=== PATIENT | female | born 1990 | race Two or more races ===

== ENCOUNTER 2021-04-02 15:24 | Inpatient (IN) | payer MEDICAID ==
[~2021-04-02] VITALS: Ht 160 cm; Wt 47.9 kg
[2021-04-02] MEDS ORDERED: MULT-264 PO (19:01)
[2021-04-02] MEDS ORDERED: ESCI20TA87 PO (19:01)
[2021-04-02] MEDS ORDERED: AMIT25TA10 PO (19:01)
[2021-04-02] MEDS ORDERED: HALOPERIDOL 5 MG TABLET PO PRN (20:00)
[2021-04-02 20:24] VITALS: BP 118/75
[2021-04-02] MEDS: LORazepam 2 MG TABLET PO PRN (21:27)
[2021-04-03 06:20] VITALS: BP 105/61
[2021-04-03] MEDS ORDERED: ALBUTEROL SULFATE HFA 90 MCG/PUFF 8 GM INHALER IH PRN (06:45)
[2021-04-03] MEDS ORDERED: CloNIDine HCL 0.1 MG TABLET PO PRN (06:45)
[2021-04-03] MEDS ORDERED: MAGNESIUM HYDROXIDE SUSPENSION 30 ML UDCUP PO PRN (06:45)
[2021-04-03] MEDS ORDERED: GuaiFENesin/D-METHORPHAN [SUGAR-FREE] 200-20MG/10 ML SYRUP UDCUP PO PRN (06:45)
[2021-04-03] MEDS ORDERED: ACETAMINOPHEN 325 MG TABLET PO PRN (06:45)
[2021-04-03] MEDS ORDERED: DOCUSATE SODIUM 100 MG CAPSULE PO PRN (06:45)
[2021-04-03] MEDS ORDERED: ONDANSETRON HCL 4 MG TABLET PO PRN (06:45)
[2021-04-03] MEDS ORDERED: LOPERAMIDE HCL 2 MG CAPSULE PO PRN (06:45)
[2021-04-03] MEDS ORDERED: MAG HYDROX/AL HYDROX/SIMETH ES 30 ML SUSPENSION UDCUP PO PRN (06:45)
[2021-04-03] MEDS ORDERED: IBUPROFEN 400 MG TABLET PO PRN (06:45)
[2021-04-03] MEDS ORDERED: PETROLATUM,WHITE 28 GM JELLY TP PRN (06:45)
[2021-04-03] MEDS ORDERED: NICOTINE 14 MG/24 HOUR PATCH TD PRN (06:45)
[2021-04-03 08:10] LABS: BASOPHILS % (AUTO) 1.1 % (0.0-2.0); HEMATOCRIT 38.5 % (36-46); HEMOGLOBIN 12.8 g/dL (12.0-16.0); HEMOGLOBIN A1C 5.3 % (3.8-5.6); LYMPHOCYTES # (AUTO) 2.5 K/uL (1.0-4.8); LYMPHOCYTES % (AUTO) 40.2 % (22.0-44.0); MEAN CORPUSCULAR HEMOGLOBIN 29.7 pg (26.0-34.0); MEAN CORPUSCULAR HGB CONC 33.3 G/dL (31.0-37.0); MEAN CORPUSCULAR VOLUME 89 fL (80-100); MONOCYTES # (AUTO) 0.6 K/uL (0.1-1.0); MONOCYTES % (AUTO) 9.3 % (2.0-9.0); NEUTROPHILS # (AUTO) 2.8 K/uL (1.8-7.7); NEUTROPHILS % (AUTO) 45.4 % (40.0-70.0); PLATELET COUNT (AUTO) 307 K/uL (150-450); RED BLOOD CELL COUNT(AUTO) 4.32 MIL/uL (4.00-5.20); RED CELL DISTRIBUTION WIDTH 12.6 % (11.5-14.5)
[2021-04-03 08:43] LABS: ALANINE AMINOTRANSFERASE 25 U/L (12-78); ALBUMIN 3.6 g/dL (3.4-5.0); ALKALINE PHOSPHATASE 54 U/L (46-116); ANION GAP 12 mmol/L (8-16); ASPARTATE AMINOTRANSFERASE 23 U/L (15-37); BILIRUBIN,TOTAL 0.5 mg/dL (0.1-1.0); CALCIUM, TOTAL 8.9 mg/dL (8.8-10.5); CARBON DIOXIDE 23 mmol/L (22-29); CHLORIDE 104 mmol/L (98-107); CHOL/HDL RATIO 2.8 (3.9-5.7); CHOLESTEROL 215 mg/dL (131-200); CREATININE 0.74 mg/dL (0.60-1.30); GLOMERULAR FILTR. RATE CALC > 60 mL/min (>60); GLUCOSE,RANDOM 75 mg/dL (70-110); HCG,QUANTITATIVE 1 mIU/mL (0-6); HDL CHOLESTEROL 77 mg/dL (40-60); LDL CHOL (CALC.) 130 mg/dL (0-130); POTASSIUM 4.3 mmol/L (3.5-5.1); SODIUM SERUM 139 mmol/L (136-145); THYROID STIMULATING HORMONE 0.85 uIU/mL (0.36-3.74); TOTAL PROTEIN, SERUM 6.7 g/dL (6.4-8.2); TRIGLYCERIDES 40 mg/dL (15-150); UREA NITROGEN, BLOOD 16 mg/dL (7-18)
[2021-04-03 16:12] VITALS: BP 103/68
[2021-04-03] MEDS: AMITRIPTYLINE HCL 25 MG TABLET PO SCH (20:22)
[2021-04-03] MEDS: ZOLPIDEM TARTRATE 10 MG TABLET PO PRN (20:22)
[2021-04-03] MEDS: ESCITALOPRAM OXALATE 20 MG TABLET PO SCH (20:22)
[2021-04-04 00:39] VITALS: BP 107/62
[2021-04-04 08:11] VITALS: BP 106/64
[2021-04-04] MEDS: MULTIVITAMINS WITH MINERALS, THERAPEUTIC TABLET PO SCH (08:23)
[2021-04-04 08:34] LABS: APPEARANCE,URINE CLEAR (CLEAR); BILIRUBIN,URINE NEGATIVE (NEGATIVE); GLUCOSE, URINE (UA) NEGATIVE (NEGATIVE); KETONES,URINE NEGATIVE (NEGATIVE); LEUKOCYTE ESTERASE ,URINE NEGATIVE (NEGATIVE); NITRATE,URINE NEGATIVE (NEGATIVE); OCCULT BLOOD,URINE NEGATIVE (NEGATIVE); PROTEIN,URINE NEGATIVE (NEGATIVE); UROBILINOGEN,URINE 0.2 mg/dL (<=1.0)
[2021-04-04 08:40] LABS: AMPHET/METH SCREEN,URINE NEGATIVE (NEGATIVE); BARBITURATE SCREEN, URINE NEGATIVE (NEGATIVE); BENZODIAZEPINES SCREEN,URINE NEGATIVE (NEGATIVE); CANNABINOID SCREEN,URINE NEGATIVE (NEGATIVE); COCAINE SCREEN,URINE NEGATIVE (NEGATIVE); METHADONE SCREEN, URINE NEGATIVE (NEGATIVE); OPIATE SCREEN,URINE NEGATIVE (NEGATIVE)
[2021-04-04 08:43] LABS: PHENCYCLIDINE SCREEN,URINE NEGATIVE (NEGATIVE)
[2021-04-04 16:09] VITALS: BP 102/65
[2021-04-04] MEDS: ESCITALOPRAM OXALATE 20 MG TABLET PO SCH (20:18)
[2021-04-04] MEDS: ZOLPIDEM TARTRATE 10 MG TABLET PO PRN (20:18)
[2021-04-04] MEDS: AMITRIPTYLINE HCL 25 MG TABLET PO SCH (20:18)
[2021-04-05 04:36] VITALS: BP 116/78
[2021-04-05] MEDS: LORazepam 2 MG TABLET PO PRN (05:15)
[2021-04-05 08:17] VITALS: BP 108/62
[2021-04-05] MEDS: MULTIVITAMINS WITH MINERALS, THERAPEUTIC TABLET PO SCH (08:55)
[2021-04-05 16:26] VITALS: BP 102/66
[2021-04-05] MEDS: AMITRIPTYLINE HCL 25 MG TABLET PO SCH (20:15)
[2021-04-05] MEDS: ZOLPIDEM TARTRATE 10 MG TABLET PO PRN (20:15)
[2021-04-05] MEDS: ESCITALOPRAM OXALATE 20 MG TABLET PO SCH (20:15)
[2021-04-06 03:01] VITALS: BP 110/64
[2021-04-06] MEDS: MULTIVITAMINS WITH MINERALS, THERAPEUTIC TABLET PO SCH (08:23)
[2021-04-06 08:45] VITALS: BP 114/69
[2021-04-06] MEDS ORDERED: DOCUSATE SODIUM 100 MG CAPSULE PO SCH (09:00)
[2021-04-06] MEDS ORDERED: AMIT25TA10 PO (09:36)
[2021-04-06] MEDS ORDERED: ESCI20TA87 PO (09:36)
[2021-04-06 16:04] VITALS: BP 109/69
== END 2021-04-06 17:15 | disposition home or self-care (01) | DRG 751 ==
LOC: B3A 20:04
PROVIDERS: ADMIT Psychiatry & Neurology Psychiatry; ATTEND Psychiatry & Neurology Psychiatry
DX: F33.2 Major depressive disorder, recurrent severe without psychotic features (principal); R45.851 Suicidal ideations; E78.5 Hyperlipidemia, unspecified; Z79.899 Other long term (current) drug therapy; Z91.51 Personal history of suicidal behavior
CPT/HCPCS: 80053; 80061; 80307; 81003; 83036; 84439; 84443; 84702; 85025; 87081

== ENCOUNTER 2022-05-08 20:00 | Emergency (ER) | payer MEDICAID, OTHER ==
[~2022-05-08] VITALS: Ht 162.6 cm; Wt 48.2 kg
[~2022-05-08 20:00] MED LIST: AMIT25TA10 PO; ESCI20TA87 PO
[2022-05-09 01:45] LABS: BASOPHILS % (AUTO) 1.1 % (0.0-2.0); EOSINOPHILS % (AUTO) 1.7 % (1.0-6.0); HEMATOCRIT 37.1 % (36-46); HEMOGLOBIN 12.6 g/dL (12.0-16.0); LYMPHOCYTES % (AUTO) 31.8 % (22.0-44.0); MEAN CORPUSCULAR HEMOGLOBIN 29.7 pg (26.0-34.0); MEAN CORPUSCULAR HGB CONC 34.1 G/dL (31.0-37.0); MEAN CORPUSCULAR VOLUME 87 fL (80-100); MONOCYTES # (AUTO) 0.5 K/uL (0.1-1.0); MONOCYTES % (AUTO) 7.6 % (2.0-9.0); NEUTROPHILS # (AUTO) 3.6 K/uL (1.8-7.7); NEUTROPHILS % (AUTO) 57.8 % (40.0-70.0); PLATELET COUNT (AUTO) 294 K/uL (150-450); RED BLOOD CELL COUNT(AUTO) 4.26 MIL/uL (4.00-5.20); RED CELL DISTRIBUTION WIDTH 12.5 % (11.5-14.5)
[2022-05-09 01:53] LABS: ANION GAP 5 mmol/L (8-16); CALCIUM, TOTAL 9.1 mg/dL (8.8-10.5); CARBON DIOXIDE 27 mmol/L (22-29); CHLORIDE 103 mmol/L (98-107); CREATININE 0.79 mg/dL (0.60-1.30); GLUCOSE,RANDOM 88 mg/dL (70-110); POTASSIUM 4.3 mmol/L (3.5-5.1); SODIUM SERUM 135 mmol/L (136-145); UREA NITROGEN, BLOOD 10 mg/dL (7-18)
[2022-05-09 01:57] LABS: GLOMERULAR FILTR. RATE CALC > 60 mL/min (>60)
[2022-05-09 01:59] LABS: ALANINE AMINOTRANSFERASE 37 U/L (12-78); ALBUMIN 3.8 g/dL (3.4-5.0); ALKALINE PHOSPHATASE 76 U/L (46-116); ASPARTATE AMINOTRANSFERASE 29 U/L (15-37); BILIRUBIN,TOTAL 0.3 mg/dL (0.1-1.0); TOTAL PROTEIN, SERUM 6.8 g/dL (6.4-8.2)
[2022-05-09 04:47] VITALS: BP 122/70
== END 2022-05-09 06:13 | disposition home or self-care (01) ==
LOC: EMS 20:04
DX: S06.0X0A Concussion without loss of consciousness, initial encounter (principal); S80.01XA Contusion of right knee, initial encounter; Y04.8XXA Assault by other bodily force, initial encounter; Y93.89 Activity, other specified; Y92.89 Other specified places as the place of occurrence of the external cause; Y99.8 Other external cause status
CPT/HCPCS: 99284; 80053; 85025; 36415; 73562; G0480

== ENCOUNTER 2022-10-09 01:16 | Inpatient (IN) | payer MEDICAID ==
[~2022-10-09] VITALS: Ht 162.6 cm; Wt 49.9 kg
[2022-10-09] MEDS ORDERED: HALOPERIDOL 5 MG TABLET PO PRN (01:45)
[2022-10-09 02:31] LABS: GLUCOMETER DEV NAME(LOC) POC.BV
[2022-10-09] MEDS ORDERED: GABAPENTIN 400 MG CAPSULE PO ONE (03:00)
[2022-10-09] MEDS ORDERED: MIRTAZAPINE 15 MG TABLET PO ONE (03:00)
[2022-10-09] MEDS ORDERED: TraZODone HCL 50 MG TABLET PO ONE (03:00)
[2022-10-09] MEDS ORDERED: TraZODone HCL 50 MG TABLET PO PRN (04:15)
[2022-10-09 04:16] VITALS: BP 117/75
[2022-10-09 08:30] VITALS: BP 109/71
[2022-10-09] MEDS: GABAPENTIN 100 MG CAPSULE PO SCH (08:53)
[2022-10-09] MEDS: FLUoxetine HCL 20 MG CAPSULE PO SCH (08:53)
[2022-10-09] MEDS: AMOX TR/POT CLAV 500 MG/125 MG TABLET PO SCH (16:02)
[2022-10-09 17:20] VITALS: BP 111/70
[2022-10-09] MEDS: GABAPENTIN 400 MG CAPSULE PO SCH (20:29)
[2022-10-09] MEDS: ZOLPIDEM TARTRATE 10 MG TABLET PO PRN (20:58)
[2022-10-10 06:43] VITALS: BP 147/95
[2022-10-10 07:23] LABS: EOSINOPHILS % (AUTO) 4.1 % (1.0-6.0); HEMATOCRIT 36.9 % (36-46); HEMOGLOBIN 12.2 g/dL (12.0-16.0); LYMPHOCYTES # (AUTO) 2.3 K/uL (1.0-4.8); LYMPHOCYTES % (AUTO) 47.6 % (22.0-44.0); MEAN CORPUSCULAR HEMOGLOBIN 29.8 pg (26.0-34.0); MEAN CORPUSCULAR VOLUME 90 fL (80-100); MONOCYTES # (AUTO) 0.4 K/uL (0.1-1.0); MONOCYTES % (AUTO) 8.3 % (2.0-9.0); NEUTROPHILS # (AUTO) 1.8 K/uL (1.8-7.7); PLATELET COUNT (AUTO) 272 K/uL (150-450); RED BLOOD CELL COUNT(AUTO) 4.09 MIL/uL (4.00-5.20)
[2022-10-10 07:52] LABS: HEMOGLOBIN A1C 5.4 % (3.8-5.6)
[2022-10-10 08:10] LABS: ALANINE AMINOTRANSFERASE 18 U/L (12-78); ALBUMIN 3.3 g/dL (3.4-5.0); ALKALINE PHOSPHATASE 54 U/L (46-116); ANION GAP 6 mmol/L (8-16); ASPARTATE AMINOTRANSFERASE 17 U/L (15-37); BILIRUBIN,TOTAL 0.3 mg/dL (0.1-1.0); CALCIUM, TOTAL 8.8 mg/dL (8.8-10.5); CARBON DIOXIDE 29 mmol/L (22-29); CHLORIDE 104 mmol/L (98-107); CHOL/HDL RATIO 2.6 (3.9-5.7); CHOLESTEROL 195 mg/dL (131-200); CREATININE 0.74 mg/dL (0.60-1.30); FREE T4 (FREE THYROXINE) 0.88 ng/dL (0.76-1.46); GLOMERULAR FILTR. RATE CALC > 60 mL/min (>60); GLUCOSE,RANDOM 87 mg/dL (70-110); HCG,QUANTITATIVE < 1 mIU/mL (0-6); HDL CHOLESTEROL 74 mg/dL (40-60); LDL CHOL (CALC.) 110 mg/dL (0-130); POTASSIUM 4.1 mmol/L (3.5-5.1); SODIUM SERUM 139 mmol/L (136-145); TOTAL PROTEIN, SERUM 6.1 g/dL (6.4-8.2); TRIGLYCERIDES 57 mg/dL (15-150)
[2022-10-10 08:56] VITALS: BP 104/68
[2022-10-10] MEDS: DIVALPROEX SODIUM 500 MG DR TABLET PO SCH ×2 (09:13→21:19)
[2022-10-10] MEDS: AMOX TR/POT CLAV 500 MG/125 MG TABLET PO SCH ×2 (09:13→16:32)
[2022-10-10] MEDS: FLUoxetine HCL 20 MG CAPSULE PO SCH (09:13)
[2022-10-10] MEDS: GABAPENTIN 100 MG CAPSULE PO SCH (09:14)
[2022-10-10] MEDS: LITHIUM CARBONATE 300 MG CAPSULE PO SCH ×2 (09:14→21:21)
[2022-10-10] MEDS ORDERED: MAGNESIUM HYDROXIDE SUSPENSION 30 ML UDCUP PO PRN (09:30)
[2022-10-10] MEDS ORDERED: OMEPRAZOLE 20 MG CAPSULE PO PRN (09:30)
[2022-10-10] MEDS ORDERED: LOPERAMIDE HCL 2 MG CAPSULE PO PRN (09:30)
[2022-10-10] MEDS ORDERED: PETROLATUM,WHITE 28 GM JELLY TP PRN (09:30)
[2022-10-10] MEDS ORDERED: ALBUTEROL SULFATE HFA 90 MCG/PUFF 8 GM INHALER IH PRN (09:30)
[2022-10-10] MEDS ORDERED: CloNIDine HCL 0.1 MG TABLET PO PRN (09:30)
[2022-10-10] MEDS ORDERED: ONDANSETRON HCL 4 MG TABLET PO PRN (09:30)
[2022-10-10] MEDS ORDERED: DOCUSATE SODIUM 100 MG CAPSULE PO PRN (09:30)
[2022-10-10] MEDS ORDERED: MAG HYDROX/AL HYDROX/SIMETH ES 30 ML SUSPENSION UDCUP PO PRN (09:30)
[2022-10-10] MEDS ORDERED: ACETAMINOPHEN 325 MG TABLET PO PRN (09:30)
[2022-10-10] MEDS ORDERED: BACITRACIN 28 GM OINTMENT TP PRN (09:30)
[2022-10-10 16:18] VITALS: BP 111/63
[2022-10-10] MEDS: ZOLPIDEM TARTRATE 10 MG TABLET PO PRN (21:20)
[2022-10-10] MEDS: GABAPENTIN 400 MG CAPSULE PO SCH (21:21)
[2022-10-10] MEDS: IBUPROFEN 600 MG TABLET PO PRN ×2 (22:37→22:44)
[2022-10-11 01:29] VITALS: BP 109/66
[2022-10-11] MEDS: LORazepam 2 MG TABLET PO PRN (05:25)
[2022-10-11] MEDS: LEVOTHYROXINE SODIUM 50 MCG TABLET PO SCH (06:50)
[2022-10-11] MEDS: DIVALPROEX SODIUM 500 MG DR TABLET PO SCH ×2 (08:35→20:18)
[2022-10-11] MEDS: LITHIUM CARBONATE 300 MG CAPSULE PO SCH ×2 (08:35→20:18)
[2022-10-11] MEDS: GABAPENTIN 100 MG CAPSULE PO SCH (08:35)
[2022-10-11] MEDS: FLUoxetine HCL 20 MG CAPSULE PO SCH (08:35)
[2022-10-11] MEDS: AMOX TR/POT CLAV 500 MG/125 MG TABLET PO SCH ×2 (08:35→16:42)
[2022-10-11 17:21] VITALS: BP 117/87
[2022-10-11] MEDS: GABAPENTIN 400 MG CAPSULE PO SCH (20:18)
[2022-10-11] MEDS: ZOLPIDEM TARTRATE 10 MG TABLET PO PRN (20:34)
[2022-10-12 00:49] VITALS: BP 99/67
[2022-10-12 01:46] VITALS: BP 124/77
[2022-10-12] MEDS: LORazepam 2 MG TABLET PO PRN (02:36)
[2022-10-12] MEDS: LEVOTHYROXINE SODIUM 50 MCG TABLET PO SCH (06:33)
[2022-10-12 08:23] VITALS: BP 114/75
[2022-10-12] MEDS: AMOX TR/POT CLAV 500 MG/125 MG TABLET PO SCH (08:38)
[2022-10-12] MEDS: DIVALPROEX SODIUM 500 MG DR TABLET PO SCH (08:38)
[2022-10-12] MEDS: LITHIUM CARBONATE 300 MG CAPSULE PO SCH (08:38)
[2022-10-12] MEDS: GABAPENTIN 100 MG CAPSULE PO SCH (08:38)
[2022-10-12] MEDS: FLUoxetine HCL 20 MG CAPSULE PO SCH (08:38)
[2022-10-12 08:51] LABS: LITHIUM < 0.20 mmol/L (0.60-1.20)
[2022-10-12 08:54] LABS: VALPROIC ACID 120 mcg/mL (50-100)
[2022-10-12] MEDS ORDERED: LITH300C3 PO (15:53)
[2022-10-12] MEDS ORDERED: DIVA-112 PO (15:53)
[2022-10-12 16:51] VITALS: BP 117/69
== END 2022-10-12 17:24 | disposition home or self-care (01) | DRG 753 ==
LOC: B2S 01:37
PROVIDERS: ADMIT Psychiatry & Neurology Psychiatry; ATTEND Psychiatry & Neurology Psychiatry
DX: F31.9 Bipolar disorder, unspecified (principal); F29 Unspecified psychosis not due to a substance or known physiological condition; R45.851 Suicidal ideations; F41.9 Anxiety disorder, unspecified; Z20.822 Contact with and (suspected) exposure to COVID-19; G47.00 Insomnia, unspecified; K59.00 Constipation, unspecified; F50.9 Eating disorder, unspecified; Z68.1 Body mass index [BMI] 19.9 or less, adult
CPT/HCPCS: 80053; 80061; 80164; 80178; 83036; 84439; 84443; 84702; 85025

== ENCOUNTER 2025-05-08 14:19 | Emergency (ER) | payer MEDICAID ==
[~2025-05-08] VITALS: Ht 160 cm; Wt 63.6 kg
[~2025-05-08 14:19] MED LIST changes: -AMIT25TA10 PO; +DIVA-112 PO; -ESCI20TA87 PO; +LITH300C3 PO
[2025-05-08 14:30] VITALS: TEMP 98.2
[2025-05-08 15:18] LABS: PLATELET COUNT (AUTO) 325 K/uL (150-450); RED BLOOD CELL COUNT(AUTO) 4.78 MIL/uL (4.00-5.20); RED CELL DISTRIBUTION WIDTH 13.3 % (11.5-14.5); WHITE BLOOD COUNT (AUTO) 4.7 K/uL (4.5-11.0)
[2025-05-08 15:23] LABS: CALCIUM, TOTAL 9.4 mg/dL (8.8-10.5); CREATININE 0.65 mg/dL (0.60-1.30); GLOMERULAR FILTR. RATE CALC > 60 mL/min (>60); GLUCOSE,RANDOM 97 mg/dL (70-110); SODIUM SERUM 138 mmol/L (136-145); UREA NITROGEN, BLOOD 10 mg/dL (7-18)
[2025-05-08] MEDS ORDERED: FLUO-418 PO (15:42)
[2025-05-08] MEDS ORDERED: TEMA15CA PO (15:42)
[2025-05-08] MEDS ORDERED: TRAZ-252 PO (15:42)
[2025-05-08 15:53] LABS: APPEARANCE,URINE CLEAR (CLEAR); GLUCOSE, URINE (UA) NEGATIVE (NEGATIVE); LEUKOCYTE ESTERASE ,URINE NEGATIVE (NEGATIVE); NITRATE,URINE NEGATIVE (NEGATIVE); OCCULT BLOOD,URINE NEGATIVE (NEGATIVE); PH,URINE DRUG SCREEN 7.5 (5.0-8.0); SPECIFIC GRAVITIY, URINE 1.010 (1.003-1.030)
[2025-05-08 16:00] LABS: ALCOHOL, URINE DRUG SCREEN NEGATIVE (NEGATIVE); AMPHET/METH SCREEN,URINE NEGATIVE (NEGATIVE); BARBITURATE SCREEN, URINE NEGATIVE (NEGATIVE); CANNABINOID SCREEN,URINE POSITIVE (NEGATIVE); COCAINE SCREEN,URINE NEGATIVE (NEGATIVE); METHADONE SCREEN, URINE NEGATIVE (NEGATIVE)
[2025-05-08] MEDS ORDERED: LORA0.5T20 PO (17:13)
[2025-05-08 17:17] VITALS: BP 125/74; PULSE 58; RESP 16; O2SAT 99
== END 2025-05-08 17:23 | disposition home or self-care (01) ==
LOC: EMS 14:20
DX: F31.9 Bipolar disorder, unspecified (principal); Z79.899 Other long term (current) drug therapy
CPT/HCPCS: 99284; 80048; 81003; 85025; 36415; 80307; G0480